=== PATIENT | female | born 1965 | race American Indian/Alaskan Native ===

== ENCOUNTER 2021-10-09 19:01 | Emergency (ER) | payer OTHER ==
[2021-10-09 19:23] VITALS: BP 167/98
[2021-10-09 20:48] LABS: Bilirubin,Urine NEG (Negative); Blood,Urine NEG (Negative); Color,Urine Yellow (Yellow); Protein,Urine <15 mg/dL mg/dL (Negative); Urobilinogen,Urine < 2.0 mg/dL (<2.0)
[2021-10-10] MEDS ORDERED: LIDOCAINE-MPF (1%) 10 MG/1 ML VIAL 5 ML INFILTRATI ONE (08:56)
--- NOTE | 2021-10-10 10:38 | Emergency Department Report ---
ED Female HPI - General Chief complaint: Urogenital-Female Stated complaint: PAIN IN VAGINA X 1 WEEK Time Seen by Provider: 10/10/21 07:13 Source: patient Mode of arrival: Ambulatory Limitations: No Limitations - History of Present Illness Initial comments: 56-year-old black female with no past medical history presents to the emergency department for evaluation of few day history of pain and irritation to the vaginal area along with vaginal discharge. She states that she has found out that her partner has been cheating and is concerned about STDs. She denies fever, dysuria, abdominal pain, and vaginal bleeding. MD Complaint: vaginal discharge, pelvic pain, possible STD -: Gradual, days(s) (4-5) Location: perineum Radiation: non-radiating Severity: moderate Severity scale (0 -10): 5 Quality: aching Are you Now?: No Associated Symptoms: vaginal discharge. denies: vaginal bleeding, abdominal pain, nausea/vomiting, fever/chills, headaches, dysuria, hematuria, rash, seizure, shortness of breath, syncope, weakness - Related Data Sexually active: Yes Previous Rx's Medication Instructions Recorded Last Taken Type DOXYCYCLINE Hyclate [Vibramycin] 100 mg PO BID 7 Days #14 capsule 10/10/21 Unknown Rx metroNIDAZOLE [Flagyl] 500 mg PO BID 7 Days #14 tab 10/10/21 Unknown Rx Allergies Allergy/AdvReac Type Severity Reaction Status Date / Time No Known Allergies Allergy Verified 10/09/21 19:20 ED Review of Systems ROS: Stated complaint: PAIN IN VAGINA X 1 WEEK Other details as noted in HPI Comment: All other systems reviewed and negative Constitutional: denies: chills, fever, weakness Eyes: denies: vision change Respiratory: denies: shortness of breath Cardiovascular: denies: chest pain, palpitations Gastrointestinal: denies: abdominal pain, nausea, vomiting, diarrhea, hematemesis, melena, hematochezia Genitourinary: discharge. denies: urgency, dysuria, frequency, hematuria Musculoskeletal: denies: back pain Neurological: denies: headache, weakness ED Past Medical Hx - Medications Home Medications: Home Medications Medication Instructions Recorded Confirmed Last Taken Type DOXYCYCLINE Hyclate [Vibramycin] 100 mg PO BID 7 Days #14 capsule 10/10/21 Unknown Rx metroNIDAZOLE [Flagyl] 500 mg PO BID 7 Days #14 tab 10/10/21 Unknown Rx ED Physical Exam - General Limitations: No Limitations General appearance: alert, in no apparent distress - Head Head exam: Present: atraumatic, normocephalic - Eye Eye exam: Present: normal appearance. Absent: conjunctival injection - Neck Neck exam: Present: normal inspection, full ROM. Absent: tenderness, lymphadenopathy - Respiratory Respiratory exam: Present: normal lung sounds bilaterally. Absent: respiratory distress, wheezes, rales, rhonchi, stridor, chest wall tenderness - Cardiovascular Cardiovascular Exam: Present: regular rate, normal heart sounds - GI/Abdominal GI/Abdominal exam: Present: soft, normal bowel sounds. Absent: distended, tenderness, guarding, rebound, rigid - External exam: Present: normal external exam. Absent: lesions Speculum exam: Present: vaginal discharge. Absent: erythema, cervical discharge, vaginal bleeding Bi-manual exam: Absent: cervical motion tendernes, adnexal tenderness, adnexal mass, uterine enlargement, uterine tenderness - Extremities Exam Extremities exam: Present: normal inspection, full ROM, normal capillary refill. Absent: tenderness, pedal edema, joint swelling, calf tenderness - Back Exam Back exam: Present: normal inspection. Absent: CVA tenderness (R), CVA tenderness (L), vertebral tenderness - Neurological Exam Neurological exam: Present: alert, oriented X3, normal gait - Psychiatric Psychiatric exam: Present: normal affect, normal mood - Skin Skin exam: Present: warm, dry, intact, normal color ED Course Vital Signs 10/09/21 19:22 Temperature 98.4 F Pulse Rate 67 Respiratory 16 Rate Blood Pressure 167/98 [Left] O2 Sat by Pulse 96 Oximetry ED Medical Decision Making - Medical Decision Making 56-year-old black female with no past medical history presents to the emergency department for evaluation of few day history of pain and irritation to the vaginal area along with vaginal discharge. She states that she has found out that her partner has been cheating and is concerned about STDs. She denies fever, dysuria, abdominal pain, and vaginal bleeding. Wet prep positive for BV. Patient treated empirically for gonorrhea and chlamydia with Rocephin 500 mg IM and will be discharged home with prescription for doxycycline and Flagyl to take twice a day for 7 days. She is advised to follow-up with her primary care provider or [facility] for further evaluation and management. She verbalizes understanding of and agreement with plan of care. Critical care attestation.: If time is entered above; I have spent that time in minutes in the direct care of this critically ill patient, excluding procedure time. ED Disposition Clinical Impression: Bacterial vaginosis, Vaginal pain, Possible exposure to STD Disposition: 01 HOME / SELF CARE / HOMELESS Is pt being admited?: No Does the pt Need Aspirin: No Condition: Stable Instructions: Antibiotic Medicine, Adult, [id number], Pelvic Pain, Female, [id number], Bacterial Vaginosis, [id number], Bacterial Vaginosis (ED) Additional Instructions: Take medication as prescribed follow-up with primary care provider or [facility] if no improvement or worsening symptoms. Return to the emergency department as needed Prescriptions: metroNIDAZOLE [Flagyl] 500 mg PO BID 7 Days #14 tab DOXYCYCLINE Hyclate [Vibramycin] 100 mg PO BID 7 Days #14 capsule Referrals: PRIMARY CARE, [Primary Care Provider] - 3-5 Days Forms: STI Treatment and Prevention, Work/School Release Form(ED) Time of Disposition: 10:37
== END 2021-10-10 10:54 | disposition home or self-care (01) ==
LOC: ED 19:01
DX: N76.0 Acute vaginitis (principal); R10.2 Pelvic and perineal pain; Z20.2 Contact with and (suspected) exposure to infections with a predominantly sexual mode of transmission
CPT/HCPCS: 81001; 87210; 87591; 96372; 99284; J0696; J3490